=== PATIENT | male | born 1960 | race Caucasian/White ===

== ENCOUNTER 2017-05-20 22:17 | Emergency (ER) | payer BC ==
--- NOTE | 2017-05-20 23:09 | EDM.PDOC ---
ED HPI GENERAL MEDICAL PROBLEM - General Chief Complaint: Cardiovascular Problem Stated Complaint: EKG RESULTS FROM [facility] Time Seen by Provider: 05/20/17 22:31 Source of Information: Reports: Patient History Limitations: Reports: No Limitations - History of Present Illness INITIAL COMMENTS - FREE TEXT/NARRATIVE: This is a 56-year-old male. At about 840 this evening the patient walked into the [facility] ambulance area stating he was having tingling in his face and his right arm. He told the ambulance crew that his face and body started tingling about 734 he was at work. He is a diabetic his blood sugar was 234 at 4 PM today when they got an EKG showed a sinus tachycardia but there were no acute ST or T-wave changes when they sent the EKG down to us. They wanted to take the patient to the hospital but he refused and says he would go by himself once he picked up his . The patient arrived he said most of the tingling has gone but it started in the top of his head and went down both of his arms to his fingertips. Now the numbness is more in the right parietal area and his right jaw. He says occasionally he has this feeling like there is an air bubble in his abdomen and sometimes he has pain from the right side of his back to his right upper quadrant. He is not having no symptoms at this time. I reassured him that the EKG that we got here in the ER does not show any acute myocardial infarction and the 2 EKGs they did a [facility] that they sent us does not show any acute cardiac activity. Treatments [employer]: Reports: EKG - Related Data Allergies Allergy/AdvReac Type Severity Reaction Status Date / Time No Known Allergies Allergy Verified 05/20/17 22:35 Home Meds: Home Meds Aspirin 81 mg PO DAILY 05/20/17 [History] Cinnamon Bark [Cinnamon] 1,000 mg PO DAILY 05/20/17 [History] Cranberry 15,000 mg PO DAILY 05/20/17 [History] FLUoxetine HCl [Fluoxetine HCl] 40 mg PO DAILY 05/20/17 [History] Folic Acid/Mv,Fe,Other Min [One Daily Complete] 1 each PO DAILY 05/20/17 [ History] Garlic 1,000 mg PO DAILY 05/20/17 [History] Glimepiride [Amaryl] 4 mg PO DAILY 05/20/17 [History] Gluc 2KCl/Chondr/Doroteo Hy/Hy Ac [Glucosamine & Chondroitin Cap] 1 each PO DAILY 05/20/17 [History] Glucosamine/D3/Boswellia Rut [Osteo Bi-Flex Caplet] 1 each PO DAILY 05/20/17 [ History] Hydrochlorothiazide 25 mg PO DAILY 05/20/17 [History] Iron 27 mg PO DAILY 05/20/17 [History] Krill/Om-3/DHA/EPA/Phospho/Ast [Megared [place]-3 Krill Oil Sfgl] 1 each PO DAILY 05/20/17 [History] Lisinopril 40 mg PO DAILY 05/20/17 [History] Montelukast [Singulair] 10 mg PO BEDTIME 05/20/17 [History] Pioglitazone HCl 30 mg PO DAILY 05/20/17 [History] Prostarex 1 tab PO BID 05/20/17 [History] Pumpkin Seed Oil/Saw Gila [Saw Gila 160 mg Softgel] 160 mg PO DAILY [History] Simvastatin [Zocor] 20 mg PO BEDTIME 05/20/17 [History] sitaGLIPtin Phos/Metformin HCl [Janumet 50-500 MG] 1 each PO BID 05/20/17 [ History] Past Medical History HEENT History: Reports: Impaired Vision, Sinusitis Cardiovascular History: Reports: High Cholesterol, Hypertension Respiratory History: Reports: SOB Genitourinary History: Reports: Prostate Disorder Musculoskeletal History: Reports: Arthritis Psychiatric History: Reports: Depression Endocrine/Metabolic History: Reports: Diabetes, Type II, Obesity/BMI 30+ Dermatologic History: Reports: Other (See Below) Other Dermatologic History: rashes to lower extremities - Past Surgical History Cardiovascular Surgical History: Reports: Other (See Below) Other Cardiovascular Surgeries/Procedures: states possibly had a cardiac stress test Musculoskeletal Surgical History: Reports: Arthroscopic Knee, Other (See Below) Other Musculoskeletal Surgeries/Procedures:: wears bilateral knee braces Social & Family History - Family History Family Medical History: Noncontributory - Tobacco Use Smoking Status *Q: Former Smoker Used Tobacco, but Quit: No - Caffeine Use Caffeine Use: Reports: Coffee - Recreational Drug Use Recreational Drug Use: No ED ROS GENERAL - Review of Systems Review Of Systems: See Below Constitutional: Denies: Fever, Chills HEENT: Reports: Other (As per history of present illness) Respiratory: Denies: Shortness of Breath, Cough Cardiovascular: Reports: Other (As per history of present illness) Endocrine: Reports: High Glucose GI/Abdominal: Reports: Other (As per history of present illness) : Reports: No Symptoms Musculoskeletal: Reports: Other (Patient has osteoarthritis in his knees and hips, he wears bilateral braces for his knees) Skin: Reports: No Symptoms Neurological: Reports: Other (As per history of present illness) Psychiatric: Reports: No Symptoms Hematologic/Lymphatic: Reports: No Symptoms ED EXAM, GENERAL - Physical Exam Exam: See Below Exam Limited By: No Limitations General Appearance: Alert, WD/WN, No Apparent Distress Eye Exam: Bilateral Eye: Normal Inspection Ears: Normal External Exam, Normal Canal, Normal TMs Nose: Normal Inspection Throat/Mouth: Normal Inspection, Normal Lips, Normal Voice, Other (He really has no numbness in the right jaw area though he describes that he can still feel in that region) Head: Atraumatic, Normocephalic, Other (When I palpate his right parietal scalp he does have feeling though he complains of tingling in that area that seems to go to his neck, palpation of the neck and the base the neck where he had the lesser occipital nerve and greater occipital nerve is not tender to palpation) Neck: Normal Inspection, Supple, Non-Tender, Other (Full palpation of his neck does not reveal any tenderness, he has excellent rotation and flexion and extension of his neck that does not seem to exacerbate any of his numbness symptoms) Respiratory/Chest: No Respiratory Distress, Other (Mild expiratory forced wheeze , no inspiratory wheeze noted, otherwise the lungs are clear) Cardiovascular: Regular Rate, Rhythm, No Murmur GI/Abdominal: Soft, Non-Tender, Other (Bowel sounds are positive he does not appear to have any masses in his upper abdomen or lower abdomen and no tenderness on palpation) Extremities: Other (Patient has bilateral knee braces because of osteoarthritis of his knee though he does not appear to have any deformity and he seems to walk with out difficulty, his upper extremities he moves it freely and denies any numbness in his hands at the present time) Neurological: Alert, Oriented Psychiatric: Normal Affect, Normal Mood, Other (Patient seems to be somewhat jolly) Skin Exam: Warm, Dry EKG INTERPRETATION EKG Date: 05/20/17 Time: 10:55 EKG Interpretation Comments: This is a normal sinus rhythm there is no acute ST or T-wave changes and no ischemic changes noted Course - Vital Signs Last Recorded V/S: Last Vital Signs Temp 98.6 F 05/20/17 22:25 Pulse 87 05/20/17 22:25 Resp 18 05/20/17 22:25 BP 146/76 H 05/20/17 22:25 Pulse Ox 100 05/20/17 22:25 - Orders/Labs/Meds Orders: Active Orders 24 hr Category Date Time Status EKG Documentation Completion [RC] STAT Care 05/20/17 22:37 Active Labs: Laboratory Tests 05/20/17 05/20/17 Range/Units 23:30 23:30 WBC 12.18 H (4.23-9.07) K/mm3 RBC 4.03 L (4.63-6.08) M/mm3 Hgb 12.5 L (13.7-17.5) gm/L Hct 37.3 L (40.1-51.0) % MCV 92.6 H (79.0-92.2) fl MCH 31.0 (25.7-32.2) pg MCHC 33.5 (32.2-35.5) g/dl RDW Std Deviation 42.8 (35.1-43.9) fL Plt Count 290 (163-337) K/mm3 MPV 10.5 (9.4-12.3) fl Neut % (Auto) 75.9 H (34.0-67.9) % Lymph % (Auto) 14.4 L (21.8-53.1) % [place] % (Auto) 8.1 (5.3-12.2) % Eos % (Auto) 1.2 (0.8-7.0) Baso % (Auto) 0.2 (0.1-1.2) % Neut # (Auto) 9.23 H (1.78-5.38) K/mm3 Lymph # (Auto) 1.76 (1.32-3.57) K/mm3 [place] # (Auto) 0.99 H (0.30-0.82) K/mm3 Eos # (Auto) 0.15 (0.04-0.54) K/mm3 Baso # (Auto) 0.03 (0.01-0.08) K/mm3 Sodium 138 (136-145) mEq/L Potassium 4.1 (3.5-5.1) mEq/L Chloride 101 (98-107) mEq/L Carbon Dioxide 28 (21-32) mEq/L Anion Gap 13.1 (5-15) BUN 17 (7-18) mg/dL Creatinine 1.3 (0.7-1.3) mg/dL Est Cr Clr Drug Dosing 68.81 mL/min Estimated GFR (MDRD) 57 (>60) mL/min BUN/Creatinine Ratio 13.1 L (14-18) Glucose 174 H (74-106) mg/dL Calcium 9.8 (8.5-10.1) mg/dL Total Bilirubin 0.3 (0.2-1.0) mg/dL AST 20 (15-37) U/L ALT 43 (16-63) U/L Alkaline Phosphatase 41 L (46-116) U/L Troponin I < 0.017 (0.00-0.056) ng/mL Total Protein 7.6 (6.4-8.2) g/dl Albumin 4.1 (3.4-5.0) g/dl Globulin 3.5 gm/dL Albumin/Globulin Ratio 1.2 (1-2) Lipase 193 (73-393) U/L - Re-Assessments/Exams Free Text/Narrative Re-Assessment/Exam: 05/21/17 03:12 I spoke to the patient regarding his test results and heart enzymes. He appears to be good as far as his heart is concerned but I do not have an explanation for this distribution of numbness that he seems to be having. The numbness at this point has resolved but he says he's had this numbness come and go for several years and nobody seems to know why. Departure - Departure Time of Disposition: 03:14 Disposition: Home, Self-Care 01 Condition: Fair Clinical Impression: Numbness and tingling in both hands Referrals: Fabi Baez, [Primary Care Provider] - Forms: ED Department Discharge Additional Instructions: You may go back to work Tuesday evening, follow up with your family doctor because of this numbness that you are experiencing, when we worked up Heart it appears to be not related to this numbness and tingling, return to the ER if your symptoms worsen - My Orders Last 24 Hours: My Active Orders 05/20/17 22:37 EKG Documentation Completion [RC] STAT - Assessment/Plan Last 24 Hours: My Active Orders 05/20/17 22:37 EKG Documentation Completion [RC] STAT
[2017-05-21 00:27] VITALS: BP 146/76
== END 2017-05-21 03:30 | disposition home or self-care (01) ==
LOC: JD.ED 22:17
DX: R20.0 Anesthesia of skin (principal); E78.00 Pure hypercholesterolemia, unspecified; I10 Essential (primary) hypertension; E11.9 Type 2 diabetes mellitus without complications; E66.9 Obesity, unspecified; Z79.82 Long term (current) use of aspirin; Z79.899 Other long term (current) drug therapy; Z87.891 Personal history of nicotine dependence
CPT/HCPCS: 36415; 80053; 83690; 84484; 85025; 93005; 99283; 99285-25